=== PATIENT | male | born 1970 | race Hispanic/Latino ===

== ENCOUNTER 2017-04-05 13:27 | Emergency (ER) | payer SELFPAY ==
[2017-04-05 14:18] LABS: #Eosinphils 0.3 thou/uL (0.0-0.7); #Lymphocytes 2.2 thou/uL (1.20-3.40); #Monocytes 0.6 thou/uL (0.11-0.59); #Neutrophils 4.1 thou/uL (1.40-6.50); %Basophils 0.5 % (0.0-1.0); %Eosinophils 4.6 % (0.0-10.0); %Monocytes 8.2 % (0.0-10.0); Hematocrit 43.9 % (42.0-52.0); Mean Platelet Volume 6.5 fL (7.4-10.4); Red Blood Cell (RBC) Count 4.38 mill/uL (4.70-6.10); White Blood Cell (WBC) Count 7.2 thou/uL (4.8-10.8)
[2017-04-05 14:36] LABS: Bilirubin Negative (Negative); Blood, Urine Negative (Negative); Glucose, Urine (Dipstick) 500 mg/dL (Negative); Ketone, Urine Negative (Negative); Nitrite Negative (Negative); Protein, Urine (Dipstick) Negative (Neg-Trace)
[2017-04-05 14:39] LABS: ALT (SGPT) 18 U/L (8-55); AST (SGOT) 18 U/L (5-34); Alkaline Phosphatase 91 U/L (40-150); Anion Gap 12 mmol/L (10-20); BUN (Urea Nitrogen) 19 mg/dL (8.9-20.6); Bilirubin, Total 0.2 mg/dL (0.2-1.2); CK (CPK) 111 U/L (30-200); Calc. Creatinine Clearance 0 mL/min (70-130); Calcium 9.2 mg/dL (7.8-10.44); Carbon Dioxide 26 mmol/L (22-29); Chloride 105 mmol/L (98-107); Estimated GFR-MDRD 82; Globulin 3.3 g/dL (2.4-3.5); Protein, Total 7.3 g/dL (6.0-8.3)
== END 2017-04-05 15:32 | disposition home or self-care (01) ==
LOC: ERS 13:27
DX: E86.0 Dehydration (principal); R81 Glycosuria
CPT/HCPCS: 36415; 80053; 81003; 82550; 85025; 93005

== ENCOUNTER 2017-06-07 08:06 | Emergency (ER) | payer SELFPAY ==
[2017-06-07 08:44] LABS: #Eosinphils 0.5 thou/uL (0.0-0.7); #Lymphocytes 2.1 thou/uL (1.20-3.40); #Monocytes 0.6 thou/uL (0.11-0.59); %Basophils 0.4 % (0.0-1.0); %Eosinophils 6.5 % (0.0-10.0); %Lymphocytes 24.9 % (21.0-51.0); %Monocytes 7.4 % (0.0-10.0); %Neutrophils 60.8 % (42.0-75.0); Hemoglobin 15.9 g/dL (14.0-18.0); Mean Corpuscular HGB CONC 34.4 g/dL (32.0-36.0); Mean Corpuscular Hemoglobin 33.9 pg (27.0-31.0); Mean Corpuscular Volume 98.8 fl (80.0-94.0); Mean Platelet Volume 6.1 fL (7.4-10.4); Platelet Count 363 thou/uL (130-400); RBC Distribution Width 11.3 % (11.5-14.5); Red Blood Cell (RBC) Count 4.69 mill/uL (4.70-6.10); White Blood Cell (WBC) Count 8.2 thou/uL (4.8-10.8)
[2017-06-07] MEDS ORDERED: HYDROcodone/Acetaminophen 10/325 mg Tablet ONE (09:04)
[2017-06-07 09:06] LABS: Anion Gap 14 mmol/L (10-20); BUN (Urea Nitrogen) 29 mg/dL (8.9-20.6); CK (CPK) 253 U/L (30-200); Calc. Creatinine Clearance 0 mL/min (70-130); Calcium 9.2 mg/dL (7.8-10.44); Carbon Dioxide 24 mmol/L (22-29); Chloride 102 mmol/L (98-107); Estimated GFR-MDRD 89; Glucose 155 mg/dL (70-105); Potassium 4.1 mmol/L (3.5-5.1); Sodium 136 mmol/L (136-145)
== END 2017-06-07 09:52 | disposition home or self-care (01) ==
LOC: ERS 08:06
DX: R20.2 Paresthesia of skin (principal); M79.89 Other specified soft tissue disorders; F17.200 Nicotine dependence, unspecified, uncomplicated
CPT/HCPCS: 36415; 80048; 82550; 85025; 99284

== ENCOUNTER 2019-10-03 05:43 | Observation (INO) | payer OTHER, SELFPAY ==
[2019-10-03] MEDS ORDERED: Lorazepam 2 MG/ML VIAL ONE ×3 (05:48→13:07)
[2019-10-03 06:00] LABS: #Eosinphils 0.2 thou/uL (0.0-0.7); #Lymphocytes 3.4 thou/uL (1.20-3.40); %Basophils 0.2 % (0.0-1.0); %Eosinophils 0.8 % (0.0-10.0); %Lymphocytes 17.3 % (21.0-51.0); %Monocytes 5.1 % (0.0-10.0); %Neutrophils 76.6 % (42.0-75.0); Hemoglobin 17.6 g/dL (14.0-18.0); Mean Corpuscular Hemoglobin 32.2 pg (27.0-31.0); Mean Corpuscular Volume 97.6 fL (78.0-98.0); Mean Platelet Volume 6.7 fL (7.4-10.4); Platelet Count 440 thou/uL (130-400); RBC Distribution Width 11.8 % (11.5-14.5); Red Blood Cell (RBC) Count 5.47 mill/uL (4.70-6.10); White Blood Cell (WBC) Count 19.5 thou/uL (4.8-10.8)
[2019-10-03 06:20] LABS: ALT (SGPT) 39 U/L (8-55); AST (SGOT) 32 U/L (5-34); Albumin 4.8 g/dL (3.5-5.0); Alkaline Phosphatase 121 U/L (40-110); Anion Gap 20 mmol/L (10-20); BUN (Urea Nitrogen) 26 mg/dL (8.4-25.7); Bilirubin, Total 0.4 mg/dL (0.2-1.2); Calc. Creatinine Clearance 0 mL/min (70-130); Calcium 10.4 mg/dL (7.8-10.44); Carbon Dioxide 24 mmol/L (22-29); Chloride 103 mmol/L (98-107); Estimated GFR-MDRD 46; Globulin 3.5 g/dL (2.4-3.5); Glucose 181 mg/dL (70-105); Potassium 4.9 mmol/L (3.5-5.1); Protein, Total 8.3 g/dL (6.0-8.3); Sodium 142 mmol/L (136-145)
[2019-10-03 06:27] LABS: Bacteria/HPF None Seen HPF (None Seen); Bilirubin Negative (Negative); Blood, Urine Trace (Negative); Clarity Clear (Clear); Glucose, Urine (Dipstick) Greater than 1000 mg/dL (Negative); Leukocyte Negative Leu/uL (Negative); Nitrite Negative (Negative); Protein, Urine (Dipstick) 50 mg/dL (Neg-Trace); RBC/HPF 0-3 HPF (0-3); Squamous Epithelial 0-3 HPF (0-3); Urobilinogen Normal mg/dL (Less than 2); WBC/HPF 0-3 HPF (0-3)
[2019-10-03 06:27] LABS: Acetaminophen Less than 6.0 mcg/mL (10.0-30.0); Alcohol Less than 10 mg/dL (Less than 10); CK (CPK) 395 U/L (30-200); Salicylate Less than 8.0 mg/dL (15.0-30.0)
[2019-10-03 06:31] LABS: Medtox Reader # READER 4; THC/Cannabinoid Screen Detected (NotDetected)
[2019-10-03 06:32] LABS: Amphetamine Detected (NotDetected); Barbiturates Screen Not Detected (NotDetected); Benzodiazepine Screen Not Detected (NotDetected); Cocaine Metabolite Screen Not Detected (NotDetected); Medtox Control Line Valid? VALID (VALID); Methadone Not Detected (NotDetected); Methamphetamine Detected (NotDetected); Opiate Screen Not Detected (NotDetected); Oxycodone Screen Not Detected (NotDetected); Phencyclidine (PCP) Not Detected (NotDetected); Tricyclic Screen Not Detected (NotDetected)
--- NOTE | 2019-10-03 10:57 | RAD ---
EXAM: CHEST ONE VIEW HISTORY: Confusion. Diaphoretic. COMPARISON: 04/22/2004 FINDINGS: Cardiac silhouette and bronchovascular markings are accentuated due to a shallow depth of inspiration and the portable technique of the exam. Mild elevation right hemidiaphragm is present. No consolidation or pleural fluid is appreciated. There is limited evaluation left lung base due to dept h inspiration and overlying soft tissue density. The osseous structures are intact. IMPRESSION: No acute cardiopulmonary process.
--- NOTE | 2019-10-03 12:18 | CT ---
Exam: Head CT without contrast HISTORY: Altered mental status. Patient is combative. COMPARISON: 07/25/2010 FINDINGS: Hemorrhage: No intraparenchymal hemorrhage or extra-axial hematoma. Brain parenchyma: Cortical borjas-white matter differentiation is preserved. No mass effect or midline shift. Basilar cisterns are patent. Ventricular system: Ventricles and sulci are patent and symmetric. Calvarium: Intact. Sinuses and mastoid air cells: Mild mucosal thickening of the ethmoid air cells. Adequate mastoid air cell aeration IMPRESSION: No acute intracranial process.
[2019-10-03] MEDS ORDERED: Ondansetron ODT 4 MG TAB SL PRN (13:20)
[2019-10-03] MEDS ORDERED: Acetaminophen 325 MG TAB PO PRN (13:20)
[2019-10-03] MEDS ORDERED: Ondansetron PF 4 MG/2 ML Vial IVP PRN (13:20)
--- NOTE | 2019-10-03 13:27 | PDOC.FPRHP ---
- History of Present Illness Chief Complaint: drug use History of Present Illness: 49 yo M presents for AMS with history of drug use. Per EMS hx taken from ED hx they were called by pt significant other as he was not responding. They found him diophoretic and altered on the floor upon presentation. He was in the ED for 7 hours and then were called for admission as he was still not coming down from it. Pt did not answer my questions. Pt would open his eyes and then turn away and not answer any of my questions. Pt was non compliant with history taking. Attempted to call pt's listed person to notify to obtain history and they did not answer. ED Course: Given 3mg ativan, NS 3L - Allergies/Adverse Reactions Allergies Allergy/AdvReac Type Severity Reaction Status Date / Time No Known Allergies Allergy Unverified 10/03/19 17:30 - Home Medications Medication Instructions Recorded Confirmed Type No Known 10/03/19 10/03/19 History Comments: [place]on - History PMHx: none PSHx: hernia FHx: noncontributory Social: Unable to obtain 2/2 mental status - Review of Systems ROS unobtainable: due to mental status - Vital signs BP: 163/89 HR: 101 RR: 28 Tmax: 100.6 Pox: 98% on RA Wt: 81 kg - Physical Exam -Constitutional: Pt open his eyes and turns away to questioning. Pt was noncompliant with history. HEENT: normocephalic and atraumatic, conjunctiva clear, no scleral icterus, grossly normal hearing, MMM Neck: supple, trachea midline, no JVD Chest: no-tender to palpation Heart: RRR, normal S1/S2, no murmurs/rubs/gallops Lungs: CTAB, no respiratory distress, good air movement, no rales/rhonchi, no wheezing -Abdomen: Moderately distended. Umbilical hernia noted- reducible. No rebound or guarding -Neurological: Unable to fully assess 2/2 mental status Skin: no rash/lesions FMR H&P: Results - Labs Result Diagrams: 10/03/19 05:46 10/03/19 05:46 Lab results: WBC 19.5 thou/uL (4.8-10.8) H 10/03/19 05:46 Hgb 17.6 g/dL (14.0-18.0) 10/03/19 05:46 Hct 53.4 % (42.0-52.0) H 10/03/19 05:46 MCV 97.6 fL (78.0-98.0) 10/03/19 05:46 Plt Count 440 thou/uL (130-400) H 10/03/19 05:46 Neutrophils % 76.6 % (42.0-75.0) H 10/03/19 05:46 Sodium 142 mmol/L (136-145) 10/03/19 05:46 Potassium 4.9 mmol/L (3.5-5.1) 10/03/19 05:46 Chloride 103 mmol/L (98-107) 10/03/19 05:46 Carbon Dioxide 24 mmol/L (22-29) 10/03/19 05:46 BUN 26 mg/dL (8.4-25.7) H 10/03/19 05:46 Creatinine 1.58 mg/dL (0.7-1.3) H 10/03/19 05:46 Glucose 181 mg/dL (70-105) H 10/03/19 05:46 Lactic Acid 1.8 mmol/L (0.5-2.2) 10/03/19 12:39 Calcium 10.4 mg/dL (7.8-10.44) 10/03/19 05:46 Total Bilirubin 0.4 mg/dL (0.2-1.2) 10/03/19 05:46 AST 32 U/L (5-34) 10/03/19 05:46 ALT 39 U/L (8-55) 10/03/19 05:46 Alkaline Phosphatase 121 U/L (40-110) H 10/03/19 05:46 Creatine Kinase 395 U/L (30-200) H 10/03/19 05:46 Serum Total Protein 8.3 g/dL (6.0-8.3) 10/03/19 05:46 Albumin 4.8 g/dL (3.5-5.0) 10/03/19 05:46 Urine Ketones Trace mg/dL (Negative) A 10/03/19 06:02 Urine Blood Trace (Negative) A 10/03/19 06:02 Urine Nitrite Negative (Negative) 10/03/19 06:02 Ur Leukocyte Esterase Negative Freddy/uL (Negative) 10/03/19 06:02 Urine RBC 0-3 HPF (0-3) 10/03/19 06:02 Urine WBC 0-3 HPF (0-3) 10/03/19 06:02 Ur Squamous Epith Cells 0-3 HPF (0-3) 10/03/19 06:02 Urine Bacteria None Seen HPF (None Seen) 10/03/19 06:02 - Radiology Interpretation Chest x-ray Status: image reviewed by me, report reviewed by me (No acute cardiopulmonary process) CT scan - head Status: image reviewed by me, report reviewed by me (No acute pulmonary process) FMR H&P: A/P - Plan 49 yo M with no PMH is admitted for AMS 2/2 drug use. AMS 2/2 drug abuse - UDS + methamphetamines, marijuana. Alcohol neg. - presented with tachycardia, HTN, agitation, diaphoresis, one elevated temp of 100.6 in ED - given 3 L in ED and 3mg ativan - brain CT negative - CK 395. EKG showed no acute abnormalities . - VSS. Benzo prn agitation COVID PUI - low suspicion -Swabbed 2/2 fever and AMS. Pt CXR clear. Pt VSS LYLY - Cr 1.58 on admission, s/p 3L NS. Likely 2/2 dehydration. Will continue to trend and monitor - UA with hyaline casts, protein, glucose Leukocytosis - Will continue to trend. -Procal pending Thrombocytosis - 440 on admission, will continue to monitor and trend. Could be 2/2 dehydration and stress reaction. Diet: regular IVF: LR @120 until able to take PO Diet: NPO until mental status improves PCP: CC Attending: Costa Dispo: admit for observation, expected LOS <48h Addendum - Attending - Attending Attestation Date/Time: 10/03/19 5536 I personally evaluated the patient and discussed the management with Dr. Blue. I agree with the History, Examination, Assessment and Plan documented above with any addition or exceptions noted below. While he laguna shave a hx that is typically suspect for infection, on my exam, his mental status is significantly improved (A&O to self, place and date) and he has no focal pain or complaint. All his symptoms cold be explained by a drug overdose. Cultures have been obtained, but my suspicion for infection remains low. Empiric antibiotics may be started if there develops additional evidence of infection. His umbilical hernia is reducible on exam.
[2019-10-03 17:26] VITALS: BMI 27.8
[2019-10-03] MEDS ORDERED: Calcium Carbonate 500 MG ChewTAB PO PRN (19:26)
[2019-10-03] MEDS: Lactated Ringer's 1,000 ML IV SCH (20:04)
[2019-10-04] MEDS: Lactated Ringer's 1,000 ML IV SCH (04:41)
[2019-10-04 05:32] LABS: #Basophils 0.1 thou/uL (0.0-0.2); #Eosinphils 0.3 thou/uL (0.0-0.7); #Monocytes 0.8 thou/uL (0.11-0.59); %Basophils 0.5 % (0.0-1.0); %Eosinophils 2.4 % (0.0-10.0); %Lymphocytes 18.2 % (21.0-51.0); %Monocytes 7.2 % (0.0-10.0); %Neutrophils 71.7 % (42.0-75.0); Mean Corpuscular HGB CONC 32.7 g/dL (32.0-36.0); Mean Corpuscular Hemoglobin 32.2 pg (27.0-31.0); Mean Corpuscular Volume 98.7 fL (78.0-98.0); Mean Platelet Volume 6.6 fL (7.4-10.4); Platelet Count 296 thou/uL (130-400); RBC Distribution Width 11.7 % (11.5-14.5); Red Blood Cell (RBC) Count 4.95 mill/uL (4.70-6.10); White Blood Cell (WBC) Count 11.2 thou/uL (4.8-10.8)
[2019-10-04 05:51] LABS: Anion Gap 11 mmol/L (10-20); BUN (Urea Nitrogen) 17 mg/dL (8.4-25.7); Calc. Creatinine Clearance 117 mL/min (70-130); Calcium 8.4 mg/dL (7.8-10.44); Carbon Dioxide 25 mmol/L (22-29); Chloride 104 mmol/L (98-107); Estimated GFR-MDRD Greater than 90; Glucose 113 mg/dL (70-105); Potassium 3.8 mmol/L (3.5-5.1); Sodium 136 mmol/L (136-145)
--- NOTE | 2019-10-04 06:51 | PDOC.FM ---
- Subjective Subjective: Mr. Weiss feels good this morning. He is ready for breakfast. He said that he did take more meth the previous night. Hx of using meth x2 years. 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 Hanging out with the wrong people and using drugs for his anxiety. - Objective Vital Signs & Weight: Vital Signs (12 hours) Temp Pulse Resp BP Pulse Ox 10/04/19 05:00 98.3 F 76 18 133/75 95 10/04/19 01:10 98.6 F 80 18 121/57 L 96 Weight Weight 80.456 kg I&O: 10/02/19 10/03/19 10/04/19 06:59 06:59 06:59 Intake Total 1000 Output Total 450 Balance 550 Result Diagrams: 10/04/19 04:49 10/04/19 04:49 Phys Exam - Physical Examination Constitutional: NAD Respiratory: no wheezing, clear to auscultation bilateral Cardiovascular: RRR, no significant murmur Gastrointestinal: soft, non-tender, positive bowel sounds Musculoskeletal: no edema Neurological: non-focal Psychiatric: normal affect Skin: normal turgor Dx/Plan - Plan Plan: 49 yo M with no PMH is admitted for AMS 2/2 drug use. AMS 2/2 drug abuse, resolved - UDS + methamphetamines, marijuana. Alcohol neg. - presented with tachycardia, HTN, agitation, diaphoresis, one elevated temp of 100.6 in ED - given 3 L in ED and 3mg ativan - brain CT negative - CK 395. EKG showed no acute abnormalities . - VSS COVID PUI - low suspicion -Swabbed 2/2 fever and AMS. Pt CXR clear. Pt VSS LYLY, resolved - Cr 1.58 on admission, s/p 3L NS. Likely 2/2 dehydration. Will continue to trend and monitor - UA with hyaline casts, protein, glucose Leukocytosis, improved - procal neg. Likely 2/2 stress reaction Thrombocytosis, improved - 440 on admission, likely reactive Diet: regular IVF: d/c PCP: KAROLINE Attending: Costa Dispo: Discharge today Addendum - Attending - Attending Attestation Date/Time: 10/04/19 2967 I personally evaluated the patient and discussed the management with Dr. Ramirez. I agree with the History, Examination, Assessment and Plan documented above with any addition or exceptions noted below. At baseline mentation. Has detox'd from his meth binge. COVID negative. Stable for discharge.
[2019-10-04 10:59] LABS: SARS-CoV-2 MS2 Positive; SARS-CoV-2 N Gene Negative; SARS-CoV-2 S Gene Negative; SARS-CoV-2 orf1ab Negative
[2019-10-04 11:30] VITALS: BP 139/91; TEMP 98.6
--- NOTE | 2019-10-05 11:44 | DIS ---
DATE OF ADMISSION: 10/03/2019 DATE OF DISCHARGE: 10/04/2019 RESIDENT: Janie Ramirez DO ADMITTING ATTENDING: Avinash Skelton MD DISCHARGE ATTENDING: Dave Wayne MD CONSULTS: None. PROCEDURES: 10/03/2019, brain CT showed no acute intracranial process. PRIMARY DIAGNOSIS: 1. Altered mental status secondary to drug abuse. 2. Acute kidney injury, resolved. 3. Leukocytosis, improved. 4. Thrombocytosis, improved. 5. Methamphetamine and marijuana abuse. DISCHARGE MEDICATIONS: None. HISTORY OF PRESENT ILLNESS: A 49-year-old male who presents for altered mental status with a history of drug use. In the emergency department, he was agitated and a little combative. He was given 3 mg of Ativan and 3 L of normal saline in the ED. He initially presented with tachycardia, hypertension, agitation, diaphoresis, and one elevated temperature of 100.6, which resolved. UDS positive for methamphetamines and marijuana. Alcohol negative. Brain CT negative. COVID negative. His LYLY improved, it was likely secondary to dehydration. Other lab abnormalities improved and were likely due to stress reaction. His symptoms resolved and he has recommended to discontinue recreational drug use. Risks were discussed with the patient. DISPOSITION: Stable. DISCHARGE INSTRUCTIONS: Location: Home. Diet: Regular. Activity: As tolerated. Followup: To establish with new primary care physician within 1 week. Job ID: [id number] MTDD
--- NOTE | 2019-10-13 11:54 | EKG ---
Test Reason : Blood Pressure : / mmHG Vent. Rate : 123 BPM Atrial Rate : 123 BPM P-R Int : 136 ms QRS Dur : 094 ms QT Int : 318 ms P-R-T Axes : 027 220 008 degrees QTc Int : 455 ms Sinus tachycardia with Fusion complexes Right superior axis deviation Abnormal ECG Confirmed by ERMA RVIERS ([id number]), script editor MATTHEW MUNIZ ([id number]) on 10/13/2019 11:54:14 AM Referred By: Confirmed By:ERMA RIVERS
== END 2019-10-04 12:15 | disposition home or self-care (01) ==
LOC: ERS 05:43 → 2NO 17:21 → 2SW 19:20
PROVIDERS: ADMIT Student in an Organized Health Care Education/Training Program; ATTEND Student in an Organized Health Care Education/Training Program
DX: F15.10 Other stimulant abuse, uncomplicated (principal); F12.10 Cannabis abuse, uncomplicated; R41.82 Altered mental status, unspecified; N17.9 Acute kidney failure, unspecified; D72.829 Elevated white blood cell count, unspecified; D69.6 Thrombocytopenia, unspecified; I10 Essential (primary) hypertension; K42.9 Umbilical hernia without obstruction or gangrene; F17.200 Nicotine dependence, unspecified, uncomplicated; R50.9 Fever, unspecified; Z20.828 Contact with and (suspected) exposure to other viral communicable diseases
CPT/HCPCS: 36415; 51701; 70450; 71045; 80048; 80053; 80306; 80307; 81003; 81015; 82550; 83605; 84145; 84484; 85025; 87040; 87086; 87635; 93005; 96361; 96374; G0378; J2060; U0003

== ENCOUNTER 2020-04-15 02:09 | Emergency (ER) | payer SELFPAY ==
[2020-04-15] MEDS ORDERED: Bupivacaine 0.5% 10 ML VIAL ONE (03:09)
[2020-04-15] MEDS ORDERED: Bupivacaine 0.25% 10 ML VIAL ONE (03:09)
[2020-04-15] MEDS ORDERED: Lidocaine 1% (PF) 30 ML VIAL ONE (03:09)
[2020-04-15] MEDS ORDERED: Ketorolac Tromethamine 30 MG/ML VIAL ONE (04:13)
== END 2020-04-15 04:33 | disposition home or self-care (01) ==
LOC: ERS 02:09
DX: K04.7 Periapical abscess without sinus (principal); K03.81 Cracked tooth; F17.210 Nicotine dependence, cigarettes, uncomplicated
CPT/HCPCS: 41800; 96372; J1885; J2001; J3490; S0020